=== PATIENT | male | born 1950 | race African-American/Black ===

== ENCOUNTER 2020-05-23 17:09 | Emergency (ER) | payer MEDICARE, MEDICAID ==
[~2020-05-23] VITALS: Ht 170.2 cm; Wt 77.0 kg
[2020-05-23 17:13] VITALS: BP 178/86
== END 2020-05-23 18:40 | disposition left against medical advice (07) ==
LOC: ER 17:09
DX: Z53.21 Procedure and treatment not carried out due to patient leaving prior to being seen by health care provider (principal); I49.9 Cardiac arrhythmia, unspecified
CPT/HCPCS: 93005